=== PATIENT | female | born 1965 | race Caucasian/White ===

== ENCOUNTER → 2016-12-27 | Outpatient (CLI) | payer OTHER | LOC: FIMAGING 13:04 | PROVIDERS: ATTEND Naturopath | DX: D25.1 Intramural leiomyoma of uterus (principal) ==

== ENCOUNTER → 2017-04-16 | Outpatient (CLI) | payer OTHER | LOC: BMCIMAGING 16:50 | PROVIDERS: ATTEND Family Medicine | DX: M25.871 Other specified joint disorders, right ankle and foot (principal); M20.11 Hallux valgus (acquired), right foot ==